=== PATIENT | female | born 1995 | race Hispanic/Latino ===

== ENCOUNTER 2017-12-26 10:23 | Emergency (ER) | payer OTHER ==
[2017-12-26 11:30] LABS: HCG Qualitative,Urine Positive (Negative)
[2017-12-26 11:34] LABS: Bacteria,Urine 2+ /HPF (Negative); Bilirubin,Urine NEG (Negative); Blood,Urine NEG (Negative); Color,Urine Yellow (Yellow); Mucus,Urine 3+ /HPF; Urobilinogen,Urine < 2.0 mg/dL (<2.0)
[2017-12-26] MEDS ORDERED: TYLENOL PO ONE (11:50)
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
--- NOTE | 2017-12-26 14:04 | XRay Report ---
RIGHT FEMUR: HISTORY: pain. AP and lateral views of the femur demonstrate normal mineralization and contours for this patient's age. No destructive changes are noted and the adjacent soft tissues are normal. IMPRESSION: Normal right femur.
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
[2017-12-26 14:48] VITALS: BP 96/52
== END 2017-12-26 14:49 | disposition home or self-care (01) ==
LOC: ED 10:23
DX: O9A.212 Injury, poisoning and certain other consequences of external causes complicating pregnancy, second trimester (principal); S86.911A Strain of unspecified muscle(s) and tendon(s) at lower leg level, right leg, initial encounter; R10.9 Unspecified abdominal pain; V89.2XXA Person injured in unspecified motor-vehicle accident, traffic, initial encounter; Y93.89 Activity, other specified; Y92.488 Other paved roadways as the place of occurrence of the external cause; Y99.8 Other external cause status
CPT/HCPCS: 76805; 81001; 81025

== ENCOUNTER 2020-06-18 17:55 | Emergency (ER) | payer MEDICAID, OTHER ==
[2020-06-18 18:01] VITALS: BP 119/65
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
== END 2020-06-18 20:00 | disposition home or self-care (01) ==
LOC: ED 17:55
DX: H72.91 Unspecified perforation of tympanic membrane, right ear (principal); Z79.1 Long term (current) use of non-steroidal anti-inflammatories (NSAID); Z79.899 Other long term (current) drug therapy
CPT/HCPCS: 99282